=== PATIENT | female | born 1980 | race African-American/Black ===

== ENCOUNTER 2020-05-26 13:32 | Emergency (ER) | payer MEDICAID ==
[~2020-05-26] VITALS: Ht 154.9 cm; Wt 107.0 kg
[2020-05-26] MEDS ORDERED: PROMETH-CODEIN 65 ML PO ×2 (13:37→13:39)
[2020-05-26] MEDS ORDERED: DESYREL150 MG PO (13:38)
[2020-05-26] MEDS ORDERED: RISPERDAL0.5 MG PO (13:38)
[2020-05-26] MEDS ORDERED: LANTUS SUBQ (13:38)
[2020-05-26] MEDS ORDERED: HUMALOG100 UNIT/1 SUBQ (13:38)
[2020-05-26] MEDS ORDERED: ALPRAZOLAM XR3 MG PO (13:39)
[2020-05-26] MEDS ORDERED: PHENERGAN25 MG/1 ML (13:39)
[2020-05-26] MEDS ORDERED: INTERMEZZO3.5 MG SUBLING (13:39)
[2020-05-26] MEDS ORDERED: KRISTALOSE10 GM PO (13:39)
[2020-05-26] MEDS ORDERED: ZOFRAN4 MG PO (13:39)
[2020-05-26] MEDS ORDERED: MIRALAX119 GM PO (13:40)
[2020-05-26] MEDS ORDERED: PAROXETINE CR12.5 MG PO (13:40)
[2020-05-26] MEDS ORDERED: MINIVELLE1 EAC1 TOP (13:40)
[2020-05-26 14:06] LABS: ABSOLUTE BASOPHILS 0.2 thou/uL (0.0-0.2); ABSOLUTE EOSINOPHILS 0.2 thou/uL (0.0-0.7); ABSOLUTE LYMPHOCYTES 2.8 thou/uL (0.8-5.3); ABSOLUTE MONOCYTES 0.6 thou/uL (0.0-1.2); ABSOLUTE NEUTROPHILS 7.4 thou/uL (1.6-8.1); BASOPHILS 1.5 %; EOSINOPHILS 1.9 %; MCH 28.4 pg (26.0-34.0); MCHC 33.4 g/dL (28.0-37.0); MCV 84.9 fL (80.0-100.0); MONOCYTES 5.1 %; MPV 10.4 fl. (7.2-11.1); NUCLEATED RBCS 0 /100WBC; PLATELET COUNT* 220 thou/uL (150-400); POLYS 66.5 %; RBC 4.95 mil/uL (4.20-5.00); RDW-CV 13.7 % (10.5-14.5); WBC 11.2 thou/uL (4.0-11.0)
[2020-05-26 14:20] LABS: CREATININE 0.9 mg/dL (0.6-1.3); POTASSIUM 3.9 mmol/L (3.5-5.1)
[2020-05-26 14:25] LABS: ALBUMIN 3.4 g/dL (3.4-5.0); TOTAL BILIRUBIN 0.5 mg/dL (<0.1-1.0); TOTAL PROTEIN 7.3 g/dL (6.4-8.2)
[2020-05-26 14:28] LABS: URINE BILIRUBIN NEGATIVE (Negative); URINE BLOOD TRACE (Negative); URINE CLARITY CLEAR; URINE COLOR YELLOW; URINE GLUCOSE-RANDOM 3+ (Negative); URINE KETONES NEGATIVE (Negative); URINE LEUKOCYTES-REFLEX NEGATIVE (Negative); URINE PROTEIN NEGATIVE (Negative); URINE SPECIFIC GRAVITY 1.015 (1.005-1.030); URINE UROBILINOGEN 0.2 E.U./dl (0.2-1.0)
[2020-05-26 14:29] LABS: URINE NITRITE-REFLEX POSITIVE (Negative)
[2020-05-26 14:36] LABS: BACTERIA-REFLEX >30 Many /HPF (None Seen); CASTS None Seen /LPF (None Seen); MUCUS None Seen strn/LPF (None Seen); SQUAMOUS >10 Many /LPF (0-3)
[2020-05-26 14:37] LABS: CRYSTALS None Seen /LPF (None Seen); URINE RBC 0-2 Rare /HPF (0-2); URINE WBC-REFLEX 0-5 Rare /HPF (0-5)
[2020-05-26 18:30] VITALS: BP 150/99
== END 2020-05-26 18:32 | disposition short-term general hospital (02) ==
LOC: M.ERS 13:32
PROVIDERS: Physician Assistant
DX: K56.699 Other intestinal obstruction unspecified as to partial versus complete obstruction (principal); Z20.822 Contact with and (suspected) exposure to COVID-19; R10.32 Left lower quadrant pain; R10.13 Epigastric pain; E11.9 Type 2 diabetes mellitus without complications; I10 Essential (primary) hypertension; J45.909 Unspecified asthma, uncomplicated; Z88.1 Allergy status to other antibiotic agents; Z88.8 Allergy status to other drugs, medicaments and biological substances; Z79.899 Other long term (current) drug therapy; Z90.49 Acquired absence of other specified parts of digestive tract